=== PATIENT | female | born 1985 | race Caucasian/White ===

== ENCOUNTER 2021-06-10 22:18 | Emergency (ER) | payer MEDICAID ==
[2021-06-10 23:29] LABS: ACETAMINOPHEN 0 ug/mL (10-30 (Therapeutic))
[2021-06-10 23:30] LABS: ANION GAP 15.6 mEq/L (7-13); CHLORIDE,CL 104 mmol/L (98-107); SODIUM,NA 141 mmol/L (136-145)
--- NOTE | 2021-06-10 23:55 | EDM.PDOCBH ---
ED HPI GENERAL MEDICAL PROBLEM - General Chief Complaint: Behavioral/Psych Stated Complaint: MENTAL HEALTH (VOICES) , CHEST, DIZZY Time Seen by Provider: 06/10/21 22:28 Source of Information: Reports: Patient, RN Notes Reviewed, Other (Crisis bakery team leader) History Limitations: Reports: Other (mental health) - History of Present Illness INITIAL COMMENTS - FREE TEXT/NARRATIVE: 35 year old famle who presents with law enforcement for medical clearance to halfway. Patient also has a crisis bakery team leader at this visit. Patient states her anxiety has been increasing in the last week and she has also been hearing voices. She states the voices tell her negative things about herself. She denies any suicidal ideation or homicidal ideation. Crisis bakery team leader reports patient has been hitting her head on the trash can on stating that her medications have been poisoned. Patient did not elicit any homicidal or suicidal ideation at this time. Patient reports palpitations and is requesting for an EKG. She denies any chest pain, shortness of breath, fever, chills at this time. Denies any drug use. Chest Pain Score (Numeric/FACES): 10 - Related Data Allergies Allergy/AdvReac Type Severity Reaction Status Date / Time Penicillins Allergy Rash Verified 05/23/19 19:18 Home Meds: Home Meds Gabapentin [Neurontin] 900 mg PO TID 08/02/18 [History] QUEtiapine [SEROquel] 50 mg PO BEDTIME 08/02/18 [History] Amphetamine/Dextroamphetamine [Adderall XR] 15 mg PO TID 05/23/19 [History] Buprenorphine HCl/Naloxone HCl [Zubsolv 8.6-2.1 mg Tablet Sl] 1 each SL ASDIRECTED 05/23/19 [History] Past Medical History HEENT History: Reports: None Cardiovascular History: Reports: Hypertension Respiratory History: Reports: None Gastrointestinal History: Reports: None Genitourinary History: Reports: None BAND MAKER History: Reports: None Musculoskeletal History: Reports: None Neurological History: Reports: None Psychiatric History: Reports: Addiction, Anxiety, Depression, Panic Attack, Psychosis Endocrine/Metabolic History: Reports: None Hematologic History: Reports: None Immunologic History: Reports: None Oncologic (Cancer) History: Reports: None Dermatologic History: Reports: None - Infectious Disease History Infectious Disease History: Reports: None Social & Family History - Family History Family Medical History: No Pertinent Family History - Tobacco Use Tobacco Use Status *Q: Current Every Day Tobacco User Years of Tobacco use: 1 Packs/Tins Daily: 0.5 - Caffeine Use Caffeine Use: Reports: Coffee - Recreational Drug Use Recreational Drug Use: Yes Recreational Drug Type: Reports: Marijuana/Hashish ED ROS GENERAL - Review of Systems Review Of Systems: Comprehensive ROS is negative, except as noted in HPI. ED EXAM, BEHAVIORAL HEALTH - Physical Exam Exam: See Below Exam Limited By: No Limitations General Appearance: Alert, No Apparent Distress Eye Exam: Bilateral Eye: EOMI, PERRL Ears: Normal External Exam, Normal Canal, Hearing Grossly Normal, Normal TMs Nose: Normal Inspection, Normal Mucosa, No Blood Throat/Mouth: Normal Oropharynx, Normal Voice, No Airway Compromise Head: Atraumatic, Normocephalic Neck: Normal Inspection, Supple, Non-Tender, Full Range of Motion Respiratory/Chest: No Respiratory Distress, Lungs Clear, Normal Breath Sounds, No Accessory Muscle Use, Chest Non-Tender Cardiovascular: No Gallop, No JVD, No Murmur, No Rub, Tachycardia GI/Abdominal: Normal Bowel Sounds, Soft, Non-Tender (Female) Exam: Deferred Rectal (Female) Exam: Deferred Neurological: Alert, Oriented x 3 Psychiatric: Alert, Restless, Agitated Skin Exam: Warm, Intact COURSE, BEHAVIORAL HEALTH COMP - Course Vital Signs: Last Vital Signs Temp 98 F 06/10/21 22:44 Pulse 123 H 06/10/21 22:44 Resp 18 06/10/21 22:44 BP 129/84 06/10/21 22:44 Pulse Ox 97 06/10/21 22:44 Orders, Labs, Meds: Laboratory Tests 06/10/21 06/10/21 06/10/21 Range/Units 22:51 22:51 22:51 WBC 8.4 (5.0-10.0) 10^3/uL RBC 4.43 (4.2-5.4) 10^6/uL Hgb 11.5 L (12.0-16.0) g/dL Hct 36.1 L (37.0-47.0) % MCV 81.5 (80-100) fL MCH 26.0 L (27.0-34.0) pg MCHC 31.9 L (33.0-35.0) g/dL Plt Count 208 (150-450) 10^3/uL Neut % (Auto) 58.7 (42.2-75.2) % Lymph % (Auto) 29.1 (20.5-50.1) % [place] % (Auto) 10.8 H (2-8) % Eos % (Auto) 1.2 (1.0-3.0) % Baso % (Auto) 0.2 (0.0-1.0) % Sodium 141 (136-145) mmol/L Potassium 3.6 (3.5-5.1) mmol/L Chloride 104 (98-107) mmol/L Carbon Dioxide 25 (21-32) mmol/L Anion Gap 15.6 H (7-13) mEq/L BUN 16 (7-18) mg/dL Creatinine 0.84 (0.55-1.02) mg/dL Est Cr Clr Drug Dosing 90.90 mL/min Estimated GFR (MDRD) > 60 BUN/Creatinine Ratio 19.0 (No establ ref range) Glucose 116 H (70-99) mg/dL Calcium 8.2 L (8.5-10.1) mg/dL Total Bilirubin 0.2 (0.2-1.0) mg/dL AST 30 (15-37) U/L ALT 44 (14-59) U/L Alkaline Phosphatase 77 (46-116) U/L Total Protein 6.8 (6.4-8.2) g/dL Albumin 3.7 (3.4-5.0) g/dL Globulin 3.1 Albumin/Globulin Ratio 1.2 TSH, Ultra Sensitive 3.91 H (0.36-3.74) uIU/mL Urine HCG, Qual Salicylates (2.8-20(Therapeutic)) mg/dL Urine Opiates Screen (NEGATIVE) Ur Oxycodone Screen (NEGATIVE) Urine Methadone Screen (NEGATIVE) Acetaminophen 0 L (10-30 (Therapeutic)) ug/mL Ur Barbiturates Screen (NEGATIVE) U Tricyclic Antidepress (NEGATIVE) Ur Phencyclidine Scrn (NEGATIVE) Ur Amphetamine Screen (NEGATIVE) U Methamphetamines Scrn (NEGATIVE) Urine MDMA Screen (NEGATIVE) U Benzodiazepines Scrn (NEGATIVE) Urine Cocaine Screen (NEGATIVE) U Marijuana (THC) Screen (NEGATIVE) Ethyl Alcohol < 3 (0) mg/dL 06/10/21 06/10/21 06/10/21 Range/Units 22:51 23:38 23:38 WBC (5.0-10.0) 10^3/uL RBC (4.2-5.4) 10^6/uL Hgb (12.0-16.0) g/dL Hct (37.0-47.0) % MCV (80-100) fL MCH (27.0-34.0) pg MCHC (33.0-35.0) g/dL Plt Count (150-450) 10^3/uL Neut % (Auto) (42.2-75.2) % Lymph % (Auto) (20.5-50.1) % [place] % (Auto) (2-8) % Eos % (Auto) (1.0-3.0) % Baso % (Auto) (0.0-1.0) % Sodium (136-145) mmol/L Potassium (3.5-5.1) mmol/L Chloride (98-107) mmol/L Carbon Dioxide (21-32) mmol/L Anion Gap (7-13) mEq/L BUN (7-18) mg/dL Creatinine (0.55-1.02) mg/dL Est Cr Clr Drug Dosing mL/min Estimated GFR (MDRD) BUN/Creatinine Ratio (No establ ref range) Glucose (70-99) mg/dL Calcium (8.5-10.1) mg/dL Total Bilirubin (0.2-1.0) mg/dL AST (15-37) U/L ALT (14-59) U/L Alkaline Phosphatase (46-116) U/L Total Protein (6.4-8.2) g/dL Albumin (3.4-5.0) g/dL Globulin Albumin/Globulin Ratio TSH, Ultra Sensitive (0.36-3.74) uIU/mL Urine HCG, Qual Negative Salicylates < 2.8 L (2.8-20(Therapeutic)) mg/dL Urine Opiates Screen Negative (NEGATIVE) Ur Oxycodone Screen Negative (NEGATIVE) Urine Methadone Screen Negative (NEGATIVE) Acetaminophen (10-30 (Therapeutic)) ug/mL Ur Barbiturates Screen Negative (NEGATIVE) U Tricyclic Antidepress Positive H (NEGATIVE) Ur Phencyclidine Scrn Negative (NEGATIVE) Ur Amphetamine Screen Positive H (NEGATIVE) U Methamphetamines Scrn Negative (NEGATIVE) Urine MDMA Screen Negative (NEGATIVE) U Benzodiazepines Scrn Positive H (NEGATIVE) Urine Cocaine Screen Negative (NEGATIVE) U Marijuana (THC) Screen Positive H (NEGATIVE) Ethyl Alcohol (0) mg/dL Re-Assessment/Re-Exam: Your exam findings with patient and lab results. Patient is cleared for halfway for subsequent treatment for inpatient psychiatry. Departure - Departure Time of Disposition: 00:14 Disposition: DC/Tfer to Other 70 Condition: Fair Clinical Impression: Medical clearance for incarceration, Marijuana abuse - Discharge Information Forms: ED Department Discharge Additional Instructions: Patient is medically cleared for halfway and subsequent admission into inpatient psychiatry. Sepsis Event Note (ED) - Evaluation Sepsis Screening Result: No Definite Risk
[2021-06-11 00:01] LABS: BARBITURATES,URINE NEGATIVE (NEGATIVE); BENZODIAZEPINE,URINE POSITIVE (NEGATIVE); MDMA (ECSTASY), URINE NEGATIVE (NEGATIVE); METHADONE,URINE NEGATIVE (NEGATIVE); METHAMPHETAMINES,URINE NEGATIVE (NEGATIVE); OPIATES,URINE NEGATIVE (NEGATIVE); PHENCYCLIDINE,URINE NEGATIVE (NEGATIVE); TCA,URINE POSITIVE (NEGATIVE)
[2021-06-11 00:02] LABS: AMPHETAMINES,URINE POSITIVE (NEGATIVE)
[2021-06-11 00:04] LABS: OXYCODONE,URINE NEGATIVE (NEGATIVE)
== END 2021-06-11 00:43 | disposition other institution (70) ==
LOC: DL.ED 22:18
DX: F12.90 Cannabis use, unspecified, uncomplicated (principal); I10 Essential (primary) hypertension; Z72.0 Tobacco use; Z88.0 Allergy status to penicillin; Z79.899 Other long term (current) drug therapy
CPT/HCPCS: 36415; 80053; 80143; 80179; 80305-QW; 80307; 81025; 84443; 85025; 99283

== ENCOUNTER 2022-07-24 01:53 | Emergency (ER) | payer MEDICAID ==
[2022-07-24] MEDS ORDERED: Insulin Regular, Human 100 Units/ML 3 ML Vial IV ONE (04:00)
== END 2022-07-24 03:46 | disposition home or self-care (01) ==
LOC: DL.ED 01:53
DX: Z76.5 Malingerer [conscious simulation] (principal); F90.9 Attention-deficit hyperactivity disorder, unspecified type; F41.9 Anxiety disorder, unspecified; F29 Unspecified psychosis not due to a substance or known physiological condition; I10 Essential (primary) hypertension; Z88.0 Allergy status to penicillin
CPT/HCPCS: 99284

== ENCOUNTER 2022-07-24 18:44 | Emergency (ER) | payer MEDICAID | END 2022-07-24 19:52 | disposition left against medical advice (07) | LOC: DL.ED 18:44 | DX: Z53.21 Procedure and treatment not carried out due to patient leaving prior to being seen by health care provider (principal) ==

== ENCOUNTER 2022-07-24 19:50 | Emergency (ER) | payer MEDICAID | END 2022-07-24 21:44 | disposition left against medical advice (07) | LOC: DL.ED 19:50 | DX: Z53.21 Procedure and treatment not carried out due to patient leaving prior to being seen by health care provider (principal) ==

== ENCOUNTER 2022-09-02 13:20 | Emergency (ER) | payer MEDICAID ==
[2022-09-28 10:52] LABS: ANION GAP 11.6 mEq/L (7-13); CHLORIDE,CL 101 mmol/L (98-107); ESTIMATED GFR 106 mL/min (>=60); SODIUM,NA 136 mmol/L (136-145)
[2022-09-28 10:53] LABS: ACETAMINOPHEN 0 ug/mL (10-30 (Therapeutic))
[2022-09-28 10:55] LABS: MDMA (ECSTASY), URINE NEGATIVE (NEGATIVE); METHAMPHETAMINES,URINE NEGATIVE (NEGATIVE)
[2022-09-28 10:56] LABS: AMPHETAMINES,URINE POSITIVE (NEGATIVE); BARBITURATES,URINE NEGATIVE (NEGATIVE); BENZODIAZEPINE,URINE NEGATIVE (NEGATIVE); METHADONE,URINE NEGATIVE (NEGATIVE); OPIATES,URINE NEGATIVE (NEGATIVE); OXYCODONE,URINE NEGATIVE (NEGATIVE); PHENCYCLIDINE,URINE NEGATIVE (NEGATIVE); TCA,URINE NEGATIVE (NEGATIVE)
== END 2022-09-02 17:12 | disposition home or self-care (01) ==
LOC: DL.ED 13:20
DX: F20.89 Other schizophrenia (principal)
CPT/HCPCS: 36415; 70450; 70486; 80053; 80143; 80179; 80305-QW; 80307; 81001; 81025; 83735; 84443; 85025; 96372; 99284

== ENCOUNTER 2023-04-12 12:38 | Emergency (ER) | payer MEDICAID | END 2023-04-12 12:51 | disposition left against medical advice (07) | LOC: DL.ED 12:38 | DX: Z53.21 Procedure and treatment not carried out due to patient leaving prior to being seen by health care provider (principal) ==

== ENCOUNTER 2023-06-01 13:56 | Emergency (ER) | payer MEDICAID ==
[2023-06-01] MEDS ORDERED: Dexamethasone 4 MG/ML SDV IM ONE (14:23)
== END 2023-06-01 14:53 | disposition home or self-care (01) ==
LOC: DL.ED 13:56
DX: M25.461 Effusion, right knee (principal); I10 Essential (primary) hypertension; Z72.0 Tobacco use; Z88.0 Allergy status to penicillin
CPT/HCPCS: 96372; 99283; J1100

== ENCOUNTER 2024-02-27 20:33 | Emergency (ER) | payer MEDICAID | END 2024-02-27 21:54 | disposition left against medical advice (07) | LOC: DL.ED 20:33 | DX: Z53.21 Procedure and treatment not carried out due to patient leaving prior to being seen by health care provider (principal) ==

== ENCOUNTER 2024-04-23 17:31 | Emergency (ER) | payer MEDICAID ==
[2024-04-23] MEDS: Diazepam 5 MG Tab PO ONE (18:07)
[2024-04-23] MEDS: Ondansetron 4 MG Tab.DIS PO ONE (18:07)
[2024-04-23] MEDS: Gabapentin 300 MG Cap PO ONE (18:13)
== END 2024-04-23 18:19 | disposition home or self-care (01) ==
LOC: DL.ED 17:31
DX: F13.930 Sedative, hypnotic or anxiolytic use, unspecified with withdrawal, uncomplicated (principal); I10 Essential (primary) hypertension; Z79.899 Other long term (current) drug therapy; Z88.0 Allergy status to penicillin
CPT/HCPCS: 99283; A9270

== ENCOUNTER 2024-05-25 18:25 | Emergency (ER) | payer MEDICAID | END 2024-05-25 19:10 | disposition left against medical advice (07) | LOC: DL.ED 18:25 | DX: Z76.0 Encounter for issue of repeat prescription (principal); I10 Essential (primary) hypertension; Z76.5 Malingerer [conscious simulation]; Z79.899 Other long term (current) drug therapy; Z88.0 Allergy status to penicillin | CPT/HCPCS: 99281; 99283 ==